=== PATIENT | male | born 1965 | race Hispanic/Latino ===

== ENCOUNTER 2016-07-28 10:05 | Emergency (ER) | payer OTHER ==
[~2016-07-28] VITALS: Ht 165.1 cm; Wt 68.2 kg
[2016-07-28 10:09] VITALS: BP 113/81; PULSE 61; RESP 12; O2SAT 100
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
--- NOTE | 2016-07-28 11:01 | DRSVH ---
PROCEDURE: X-RAY CHEST ONE VIEW, PORTABLE ([id number]) INDICATIONS: cp TECHNIQUE: One view of the chest was acquired. COMPARISON: [facility], CR, CHEST 2VW, 03/08/2012, 10:15. [facility], CR, CH EST 1VW (PORTABLE), 06/07/2006, 16:16. FINDINGS: Surgical changes and devices: None. Lungs and pleura: No pleural effusions or pneumothorax. Lungs are clear. Mediastinum: Mediastinal contours appear normal. Heart size is normal. Bones and chest wall: No suspicious bony lesions. Overlying soft tissues appear unremarkable. 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 Source of chest pain is not seen. Dictated by: Rene Valle M.D. on 07/28/2016 at 11:00 Approved by: Rene Valle M.D. on 07/28/2016 at 11:00
[2016-07-28 11:25] LABS: BASOPHILS % (AUTO) 0.2 % (0-3); EOSINOPHILS % (AUTO) 2.3 % (0-5); MONOCYTES % (AUTO) 5.4 % (4-12); Mean Corpuscular Hemoglobin 31.2 pg (27.0-35.0); Mean Corpuscular Volume 90.9 fL (81-100); NEUTROPHILS % (AUTO) 73.3 % (40-74); Platelet Count 234 bil/L (150-400)
[2016-07-28 12:14] LABS: Magnesium 2.1 mg/dL (1.6-2.6)
[2016-07-28 12:23] LABS: TROPONIN T < 0.010 ug/L (0.0-0.011)
[2016-07-28] MEDS ORDERED: Famotidine Inj 20 MG in IV Premix 1 EACH IV ONE (13:35)
[2016-07-28 13:39] VITALS: BP 112/68; PULSE 69; RESP 18; O2SAT 99
[2016-07-28] MEDS ORDERED: FAMO20TA4 PO (14:59)
[2016-07-28 15:17] VITALS: BP 109/59; PULSE 69; RESP 20; O2SAT 100
== END 2016-07-28 15:18 | disposition home or self-care (01) ==
LOC: SED 10:05
DX: R07.9 Chest pain, unspecified (principal)
CPT/HCPCS: 36415; 71010; 80053; 83735; 84484; 85025; 93005; 96374; 99284; J3490